=== PATIENT | female | born 1980 ===

== ENCOUNTER → 2019-10-10 14:28 | Outpatient (REF) | payer BC, SELFPAY | LOC: ANHLAB 14:28 | PROVIDERS: Visit Provider Surgery Plastic and Reconstructive Surgery | DX: C43.4 Malignant melanoma of scalp and neck (principal) | CPT/HCPCS: 88305; 88342 ==

== ENCOUNTER → 2020-02-08 11:46 | Outpatient (REF) | payer BC, SELFPAY | LOC: ANHLAB 11:46 | PROVIDERS: Visit Provider Surgery Plastic and Reconstructive Surgery | DX: C43.4 Malignant melanoma of scalp and neck (principal); M95.3 Acquired deformity of neck | CPT/HCPCS: 88305 ==